=== PATIENT | male | born 1975 | race Caucasian/White ===

== ENCOUNTER 2017-05-31 13:48 | Emergency (ER) | payer BC, OTHER ==
[2017-05-31 13:56] VITALS: BP 125/88; PULSE 100; RESP 18; TEMP 99.2
[2017-05-31] MEDS ORDERED: DIPH,PERTUS(ACELL)TETVAC-LF 0.5 ML VIAL IM ONE (14:02)
--- NOTE | 2017-05-31 14:15 | ED ---
Wound/Laceration HPI - General Chief Complaint: Wound/Laceration Stated Complaint: facial injury/saw Time Seen by Provider: 05/31/17 13:57 Source: patient, RN notes reviewed Mode of arrival: ambulatory Limitations: no limitations - History of Present Illness Initial Comments: Patient is a 41-year-old male presents to the emergency room for evaluation of facial laceration. Patient states he was using a block saw cutting a cement block and it kicked back and hit him on his right cheek. Patient denies loss of consciousness. Patient denies taking blood thinners. Patient denies any numbness or tingling in his face. Patient states his last tetanus vaccine was in 2004. Patient denies any other injuries during incident. - Related Data Previous Rx's Medication Instructions Recorded Acetaminophen-Codeine 300-30mg 1 each PO Q6H PRN #20 tablet 04/11/16 [Tylenol #3] Cyclobenzaprine [Flexeril] 10 mg PO TID #20 tab 04/11/16 Dexamethasone 0.75 mg PO DIRECTED #12 tablet 04/11/16 Ibuprofen [Motrin] 800 mg PO Q6HR PRN #30 tab 04/11/16 Allergies Allergy/AdvReac Type Severity Reaction Status Date / Time latex Allergy Rash/Hives Verified 05/31/17 13:56 Review of Systems ROS Statement: Those systems with pertinent positive or pertinent negative responses have been documented in the HPI. ROS Other: All systems not noted in ROS Statement are negative. Past Medical History Past Medical History: No Reported History History of Any Multi-Drug Resistant Organisms: None Reported Additional Past Surgical History / Comment(s): right wrist Past Psychological History: No Psychological Hx Reported Smoking Status: Current every day smoker Past Alcohol Use History: Occasional Past Drug Use History: None Reported General Exam - General Exam Comments Initial Comments: sitting in exam room, no distress. Limitations: no limitations General appearance: alert, in no apparent distress Head exam: Present: normocephalic Expanded Head exam: Present: laceration (1cm laceration over right cheek; 6 inch irregular laceration over right cheek inferior to first laceration) 1 - 1cm laceration 2 - 6 inch irregular laceration Eye exam: Present: normal appearance, PERRL, EOMI Pupils: Present: normal accommodation ENT exam: Present: normal exam Neck exam: Present: normal inspection Respiratory exam: Absent: respiratory distress Extremities exam: Present: normal inspection Back exam: Present: normal inspection Neurological exam: Present: alert, oriented X3, CN II-XII intact, normal gait Psychiatric exam: Present: normal affect, normal mood Skin exam: Present: warm, dry. Absent: rash Course Vital Signs 05/31/17 13:51 Temperature 99.2 F Pulse Rate 100 Respiratory 18 Rate Blood Pressure 125/88 O2 Sat by Pulse 97 Oximetry Procedures - Laceration Laceration #1 Consent Obtained: verbal consent Indication: laceration Site: face Size (cm): 1 Description: linear Depth: simple, single layer Anesthetic Used: lidocaine 1% Anesthesia Technique: local infiltration Amount (mls): 1 Pre-repair: wound explored, irrigated extensively Type of Sutures: nylon Size of Sutures: 6-0 Number of Sutures: 2 Technique: simple, interrupted Patient Tolerated Procedure: well, no complications Laceration #2 Consent Obtained: verbal consent Indication: laceration Site: face Size (cm): 15 Description: irregular Depth: simple, single layer Anesthetic Used: lidocaine 1% Anesthesia Technique: local infiltration Amount (mls): 8 Pre-repair: wound explored, irrigated extensively Type of Sutures: nylon, vicryl Size of Sutures: 4-0 (vicryl), 6-0 (nylon) Number of Sutures: 23 (22 nylon, 1 vicryl) Technique: simple, interrupted Patient Tolerated Procedure: well, no complications Medical Decision Making - Medical Decision Making Patient is a 41-year-old female presents to to the emergency room for facial lacerations. Patient was updated on his tetanus vaccine. Lacerations repair with sutures. Patient states he understands everything that was discussed with him. Return parameters discussed. Case discussed with Dr. Medina. - Radiology Data Radiology results: report reviewed, image reviewed Disposition Clinical Impression: Facial laceration Disposition: HOME SELF-CARE Condition: Good Instructions: Care For Your Stitches (ED), Facial Laceration (ED) Additional Instructions: Do not soak suture area in water. Clean suture area with a damp cloth. Please return here or follow up with primary care provider in 5 days for suture removal. Take Tylenol or Motrin as needed for pain. If any new symptom arises or symptoms worsen, return to ER as soon as possible. Referrals: Dani Rosas III, MD [Primary Care Provider] - 1-2 days Time of Disposition: 16:01
--- NOTE | 2017-05-31 14:30 | XR ---
EXAMINATION TYPE: XR facial bones complete DATE OF EXAM: 05/31/2017 COMPARISON: NONE HISTORY: Right-sided facial laceration TECHNIQUE: 3 views submitted FINDINGS: Mild to moderate mucosal thickening involving the maxillary sinuses. Osseous structures int act. No acute fracture or dislocation. IMPRESSION: 1. No definite acute fracture or symptoms persist consider CT scan. Correlate for soft tissue injury along the right facial soft tissue. 2. Correlate for chronic sinusitis.
[2017-05-31] MEDS ORDERED: HYDROcodone/APAP 5-325MG 1 EACH TAB PO STA (14:47)
== END 2017-05-31 16:27 | disposition home or self-care (01) ==
LOC: EC 13:48
DX: S01.81XA Laceration without foreign body of other part of head, initial encounter (principal); F17.200 Nicotine dependence, unspecified, uncomplicated; Z91.040 Latex allergy status; Z23 Encounter for immunization; W20.8XXA Other cause of strike by thrown, projected or falling object, initial encounter; Y92.69 Other specified industrial and construction area as the place of occurrence of the external cause; Y93.89 Activity, other specified
CPT/HCPCS: 12016; 70150; 90471; 90715; 99283

== ENCOUNTER → 2021-10-13 | Outpatient (CLI) | payer BC ==
--- NOTE | 2021-10-14 03:50 | MR ---
EXAMINATION TYPE: MR cervical spine wo con DATE OF EXAM: 10/13/2021 COMPARISON: HISTORY: Neck pain for 10 years Multiplanar multiecho imaging of the cervical spine without contrast. Cervical vertebra have normal alignment. There is some degenerative disc space narrowing at C5-6 and C6-7. There is 3 x 7 mm area of increased signal within the cervical spinal cord at the C3 level on t he T2 images. Brainstem is intact. There is no compression fracture. Prevertebral soft tissues are in tact. IMPRESSION: Spondylotic changes in the lower cervical spine. No fracture. No spinal stenosis. Minimal posterior d isc bulging at C3-4 and C5-6 and C6-7 without significant impingement on the spinal canal. Canal vinay ures 8.5 mm at the narrowest point. Small focal area of increased signal within the cervical cord at C3 level could be related to demyeli nating disease. No mass.
== END | disposition home or self-care (01) ==
LOC: RADMRIMAIN 21:36
PROVIDERS: ATTEND Family Medicine
DX: M54.2 Cervicalgia (principal)
CPT/HCPCS: 72141

== ENCOUNTER → 2024-09-09 | Outpatient (CLI) | payer BC ==
--- NOTE | 2024-09-11 14:54 | MR ---
EXAMINATION TYPE: MR lumbar spine wo con DATE OF EXAM: 09/09/2024 6:49 PM COMPARISON: 08/16/2024. 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 IV Contrast: cc . (None if empty) FINDINGS: Alignment: The lumbar vertebral bodies have preserved heights and alignment. Cord: The conus medullaris and the distal spinal cord appear unremarkable with regards to their signa l intensity and morphology. Bones/Discs: Mild degeneration changes throughout the spine with osteophyte formation and facet joint arthropathy. Intervertebral disc signal is maintained. No abnormal inversion recovery signal to sugg est bony edema. T12-L1: No evidence of significant spinal canal stenosis. Facet joint arthropathy mild bilateral neur al foraminal stenosis. L1-L2: No evidence of significant spinal canal stenosis. Facet joint arthropathy mild bilateral neura l foraminal stenosis. L2-L3: No evidence of significant spinal canal stenosis. Facet joint arthropathy mild bilateral neura l foraminal stenosis. L3-L4: Left central disc extrusion with inferior migration of disc material up to 9 mm. No evidence f or significant spinal canal stenosis. This closely approximates left exiting nerves.. L4-L5: Disc bulge and facet joint arthropathy result in mild spinal canal and moderate bilateral neur al foraminal stenosis. L5-S1: The disc has a rounded posterior morphology without significant spinal canal stenosis. Facet j oint arthropathy with moderate bilateral neural foraminal stenosis. No significant spinal canal or neural foraminal stenosis in the remainder of the visualized levels. Other findings: None. IMPRESSION: 1. L3-L4 Left central disc extrusion with inferior migration . This closely approximates left exitin g nerves. 2. No evidence of significant spinal canal stenosis. 3. Multilevel disc degeneration with associated osteoarthritic changes. [facility], , 09/11/2024 2:51 PM
--- NOTE | 2024-09-11 15:00 | MR ---
EXAMINATION TYPE: MR brain wo/w con DATE OF EXAM: 09/09/2024 6:54 PM COMPARISON: None. 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 The patient was then given intravenous contrast and multi planar, T1 fat-saturation images wer e obtained. IV Contrast: 7 cc Gadobutrol FINDINGS: Extra axial mass with homogenous enhancement measuring up to 14r 20 mm. Scattered foci of h igh T2 signal intensity are seen within the periventricular white matter as well as the right bee at least one of these lesions is orthogonal to the lateral ventricle. The duarte-white junctions, ventric ular system, basal cisterns appear unremarkable. Diffusion-weighted imaging shows no evidence of res tricted diffusion to suggest acute/subacute infarct. Intracranial arterial flow voids are maintained. Midline structures show no abnormality. The susceptibility weighted images do not reveal any evidenc e for micro-hemorrhage. After administration of gadolinium, no abnormal enhancement is seen. Left cer ebellar hemisphere developmental venous anomaly. The bone marrow signal is within normal limits. Paranasal sinuses and mastoid air cells: Mild scattered paranasal sinus disease. Visualized orbits: Orbital contents are intact. IMPRESSION: 1. No evidence for active demyelination, Nonspecific white matter changes, at least one of the lesio ns is orthogonal to the lateral ventricle on the left correlate for demyelination such as multiple sc lerosis. 2. Right extra-axial mass favored represent a meningioma. 3. No evidence of intracranial mass, acute/subacute infarct, or abnormal enhancement. [facility], , 09/11/2024 2:58 PM
== END | disposition home or self-care (01) ==
LOC: RADMRIMAIN 17:36
PROVIDERS: ATTEND Family Medicine
DX: M51.16 Intervertebral disc disorders with radiculopathy, lumbar region (principal); M47.26 Other spondylosis with radiculopathy, lumbar region; R13.10 Dysphagia, unspecified
CPT/HCPCS: 70553; 72148